=== PATIENT | female | born 1930 | race American Indian/Alaskan Native ===

== ENCOUNTER 2016-11-09 15:35 | Outpatient (CLI) | payer MEDICARE ==
[2016-11-09 17:32] LABS: Hematocrit 40.3 % (30.3-42.9); Mean Corpuscular HGB Conc 32 % (30-34); Mean Corpuscular Hemoglobin 31 pg (28-32); Mean Corpuscular Volume 96 fl (79-97); Platelet Count 141 K/mm3 (140-440); Red Blood Count 4.18 M/mm3 (3.65-5.03); Red Cell Distribution Width 14.6 % (13.2-15.2); White Blood Count 5.4 K/mm3 (4.5-11.0)
[2016-11-09 17:34] LABS: Albumin 3.3 g/dL (3.9-5); Albumin/Globulin Ratio 0.9 %; BUN/Creatinine Ratio 21.81; Bilirubin,Total 0.9 mg/dL (0.1-1.2); Calcium 10.8 mg/dL (8.4-10.2); Chloride 105.6 mmol/L (98-107); Potassium 4.4 mmol/L (3.6-5.0); Total Protein 6.8 g/dL (6.3-8.2)
== END 2016-11-09 15:36 | disposition home or self-care (01) ==
LOC: LAB 15:35
PROVIDERS: ATTEND Psychiatry & Neurology Neurology
DX: R41.82 Altered mental status, unspecified (principal); R41.3 Other amnesia
CPT/HCPCS: 36415; 80053; 82607; 84443; 85027; 86592; 86689

== ENCOUNTER 2016-11-26 03:36 | Emergency (ER) | payer MEDICARE ==
[~2016-11-26 03:36] MED LIST: ADRENALIN ONE; CALCIUM CHLORIDE IV ONE; SODIUM BICARBONATE IV ONE
--- NOTE | 2016-11-26 04:56 | Emergency Department Report ---
HPI - General Time Seen by Provider: 11/26/16 04:33 - HPI HPI: This is a 86-year-old -[place] Citizen female who presents to the emergency department in cardiac arrest. Originally EMS was called due to the patient having multiple syncopal episodes while at home on the toilet. At first, the patient did not want to go with EMS to the hospital. However eventually she was convinced to do so. While in route, the patient was very combative and then became bradycardic and lost her pulse. This happened just a few minutes prior to getting to [facility] so the patient was not intubated but an IV was established, the patient was given epinephrine and chest compressions were started. The patient presented to the emergency Department pulseless with CPR in process. Patient has a past medical history of diabetes and blood sugar was checked in route and was found to be normal. We will later able to find out that the patient's primary care doctor is Dr. Tapia and that she saw Dr. Waite for cardiology. ED Past Medical Hx - Past Medical History Hx Hypertension: Yes Hx Diabetes: Yes Hx Deep Vein Thrombosis: Yes Hx COPD: Yes Additional medical history: 2L O2 PRN - Surgical History Additional Surgical History: left rotator cuff. angioplasty x2. bilateral total knee replacements - Social History Smoking Status: Never Smoker Substance Use Type: None - Medications Home Medications: Home Medications Medication Instructions Recorded Confirmed Last Taken Type Amoxicillin [Amoxicillin 250 MG/5 500 mg PO BID #200 ml 07/22/15 Unknown Rx Ml] Benzonatate [Tessalon Perles] 100 mg PO Q8HR PRN #20 capsule 07/22/15 Unknown Rx ED Review of Systems ROS: Stated complaint: CARDIAC ARREST Other details as noted in HPI Comment: Unobtainable due to pts medical conditions Physical Exam - Physical Exam Physical Exam: GENERAL: Patient is ill-appearing and unresponsive. HEENT: Normocephalic. Pupils are fixed and dilated. NECK: Supple. Trachea is midline. CHEST/LUNGS: There are no spontaneous lung sounds. HEART/CARDIOVASCULAR: No spontaneous heart sounds. ABDOMEN: Abdomen is soft. SKIN: Skin is cool but dry. NEURO: Patient is unresponsive to verbal, tactile or painful stimuli and does not follow any commands. MUSCULOSKELETAL: There is no deformity. No spontaneous movement of the extremities. There was no palpable pulse to the radial or femoral regions. - Central Line Placement Right Femoral Consent Obtained: emergent situation Time Out Performed: No MD Prep: gloves Central Line Prep: Chlorhexidine scrub Ultrasound Used for Placement: No Central Line Lumen Inserted: triple Central Line Position: good blood return, all ports aspirated, flus Complications: none - Intubation Time Out Performed: No Sedative: none Laryngoscope: April Size: 3 ET Tube Size: 7.5 Tube Secured Depth (cm): 22 Tube Secured Location: lips Tube Placement Confirmation: visualized tube passing t, equal breath sounds bilat, no breath sounds over epi Patient Tolerated Procedure: well Intubation Complications: none ED Medical Decision Making - Medical Decision Making 86-year-old female presents in cardiac arrest. She received 1 round of epinephrine and chest compressions prior to presentation. Once the patient got to the emergency department, the chest compressions were immediately continue. Patient placed on the monitor. Pulse check was done and she was pulseless and in PEA. I then intubated the patient. The patient had a right EJ and we were able to give an initial dose of epinephrine but then the access blew. Other attempts were made by the nursing staff to get a peripheral line but there was no success so I did a right femoral CVC so that we had access. The patient then received rounds of ACLS protocol including four doses of epinephrine, 1 amp of sodium bicarbonate and 1 amp of calcium. The patient was mostly in PEA but towards the end of the ACLS protocol the patient's rhythm appeared consistent with a V. fib. At this point the patient received a defibrillation of 200 J and went right back into ACLS protocol. Around 436, I used the ultrasound to look at the patient's heart and there was no movement, squeeze. At this point the patient had received multiple rounds of ACLS without any return of spontaneous circulation and time of was called. The patient's daughter was notified and has been now allowed to come back and see her mother. Critical Care Time: Yes Critical care time in (mins) excluding proc time.: 20 Critical care attestation.: If time is entered above; I have spent that time in minutes in the direct care of this critically ill patient, excluding procedure time. Critical care time spent on this patient and doing supervision for ACLS protocol and in discussion with the daughter. This does not include time spent doing intubation or central line procedures. ED Disposition Clinical Impression: Cardiac arrest Disposition: Is pt being admited?: No Referrals: PRIMARY CARE, [Primary Care Provider] - 3-5 Days Time of Disposition: 04:57
== END 2016-11-26 06:45 ==
LOC: ED 03:36
DX: I46.9 Cardiac arrest, cause unspecified (principal); I10 Essential (primary) hypertension; E11.9 Type 2 diabetes mellitus without complications; J44.9 Chronic obstructive pulmonary disease, unspecified
CPT/HCPCS: 31500; 36556; 82962; 92950; 99285; J0171